=== PATIENT | male | born 1960 | race Caucasian/White ===

== ENCOUNTER 2016-08-29 19:24 | Emergency (ER) | payer SELFPAY ==
[~2016-08-29] VITALS: Ht 175.3 cm; Wt 80.0 kg
[2016-08-29] MEDS ORDERED: ASPIRIN 81 MG TABLET CHEW ONE (19:56)
[2016-08-29] MEDS ORDERED: MORPHINE SULFATE 4 MG/ML, 1ML ONE (19:57)
[2016-08-29] MEDS ORDERED: PLEASE ENTER ALLERGIES MC SCH ×2 (20:00)
[2016-08-29] MEDS ORDERED: MORPHINE SULFATE 4 MG/ML, 1ML IVPush PRN (20:00)
[2016-08-29] MEDS ORDERED: KETOROLAC 30 MG/1 ML IVPush ONE (20:00)
[2016-08-29] MEDS ORDERED: SODIUM CHLORIDE 0.9% 1,000ML IVBOLUS ONE (20:00)
[2016-08-29] MEDS ORDERED: SODIUM CHLORIDE FLUSH 10ML SYR IVF ONE (20:00)
[2016-08-29] MEDS ORDERED: ASPIRIN 81 MG TABLET CHEW PO ONE (20:00)
[2016-08-29] MEDS ORDERED: KETOROLAC 30 MG/1 ML ONE (20:20)
[2016-08-29 20:31] LABS: ASPARTATE AMINO TRANSFERASE 56 U/L (15-37); BLOOD UREA NITROGEN 14 mg/dL (7-18)
[2016-08-29 20:36] LABS: IS PT STATUS REG ER OR PRE ER? YES
[2016-08-29] MEDS ORDERED: OXYcodone/APAP 5/325MG TABLET ONE (20:52)
[2016-08-29] MEDS ORDERED: OXYcodone/APAP 5/325MG TABLET PO ONE (21:00)
[2016-08-29 21:48] VITALS: BP 111/61
== END 2016-08-29 21:51 | disposition home or self-care (01) ==
LOC: EDBD 19:24 → ED 20:00
DX: R07.89 Other chest pain (principal); E11.9 Type 2 diabetes mellitus without complications
CPT/HCPCS: 36415; 71010; 80053; 84484; 85025; 93005; 96361; 96374; 99285; J1885; J7030